=== PATIENT | female | born 1945 | race Caucasian/White ===

== ENCOUNTER → 2024-05-15 08:18 | Outpatient (REF) | payer OTHER, SELFPAY | LOC: HWRAD 08:18 | PROVIDERS: ATTENDING PHYSICIAN Family Medicine | DX: R59.0 Localized enlarged lymph nodes (principal) | CPT/HCPCS: 76536 ==

== ENCOUNTER → 2024-06-03 16:01 | Outpatient (REF) | payer OTHER, SELFPAY | LOC: WDC 16:01 | PROVIDERS: ATTENDING PHYSICIAN Advanced Practice Midwife; FAMILY PHYSICIAN Family Medicine | DX: Z12.31 Encounter for screening mammogram for malignant neoplasm of breast (principal) | CPT/HCPCS: 77063; 77067 ==

== ENCOUNTER → 2024-06-20 10:50 | Outpatient (REF) | payer OTHER, SELFPAY | LOC: RCS 10:50 | PROVIDERS: ATTENDING PHYSICIAN Internal Medicine Cardiovascular Disease; FAMILY PHYSICIAN Family Medicine | DX: I51.7 Cardiomegaly (principal); R09.89 Other specified symptoms and signs involving the circulatory and respiratory systems | CPT/HCPCS: 93306 ==

== ENCOUNTER → 2024-07-10 14:29 | Outpatient (REF) | payer OTHER, SELFPAY | LOC: HWRAD 14:29 | PROVIDERS: ATTENDING PHYSICIAN Advanced Practice Midwife; FAMILY PHYSICIAN Family Medicine | DX: Z78.0 Asymptomatic menopausal state (principal) | CPT/HCPCS: 77080 ==

== ENCOUNTER 2024-08-06 06:32 | Day surgery (SDC) | payer OTHER, SELFPAY | END 2024-08-06 10:25 | disposition home or self-care (01) | LOC: GI 06:32 | PROVIDERS: ATTENDING PHYSICIAN Surgery | DX: Z12.11 Encounter for screening for malignant neoplasm of colon (principal); Q43.8 Other specified congenital malformations of intestine; D12.3 Benign neoplasm of transverse colon; Z80.0 Family history of malignant neoplasm of digestive organs | CPT/HCPCS: 45385 ==

== ENCOUNTER → 2024-08-12 09:14 | Outpatient (REF) | payer OTHER, SELFPAY | LOC: RCS 09:14 | PROVIDERS: ATTENDING PHYSICIAN Internal Medicine Cardiovascular Disease; FAMILY PHYSICIAN Family Medicine | DX: I10 Essential (primary) hypertension (principal) | CPT/HCPCS: 93017 ==

== ENCOUNTER → 2024-12-25 13:01 | Outpatient (REF) | payer OTHER, SELFPAY | LOC: RCS 13:01 | PROVIDERS: ATTENDING PHYSICIAN Internal Medicine Cardiovascular Disease; FAMILY PHYSICIAN Family Medicine | DX: I10 Essential (primary) hypertension (principal) | CPT/HCPCS: 93306 ==

== ENCOUNTER 2025-01-16 09:26 | Emergency (ER) | payer SELFPAY ==
[2025-01-16 09:30] VITALS: BP 227/110
[2025-01-16 09:36] VITALS: BMI 24.9
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
[2025-01-16 09:39] VITALS: BP 203/90
[2025-01-16] MEDS: COZAAR 25 MG PO (09:57)
[2025-01-16 10:00] VITALS: BP 200/96
[2025-01-16 11:04] VITALS: BP 201/86
[2025-01-16 11:09] VITALS: BP 184/97
== END 2025-01-16 11:40 | disposition home or self-care (01) ==
LOC: EMR 09:26
PROVIDERS: EMERGENCY PHYSICIAN Emergency Medicine; FAMILY PHYSICIAN Family Medicine
DX: Z04.1 Encounter for examination and observation following transport accident (principal); I10 Essential (primary) hypertension; Z87.891 Personal history of nicotine dependence; Z96.643 Presence of artificial hip joint, bilateral; V44.5XXA Car driver injured in collision with heavy transport vehicle or bus in traffic accident, initial encounter; Y92.410 Unspecified street and highway as the place of occurrence of the external cause
CPT/HCPCS: 99284; 70450; 72125; 73030; 73502

== ENCOUNTER 2025-01-23 08:30 | Day surgery (SDC) | payer OTHER, SELFPAY ==
[2025-01-23] VITALS (13 sets, daily range): BP systolic 151–178; BP diastolic 80–97; BMI 23.2
[2025-01-23 09:13] LABS: Hematocrit 38.8 % (37.0-47.0); Hemoglobin 13.0 g/dL (12.0-16.0); Mean Corp Hgb Conc. 33.5 g/dL (33.0-37.0); Mean Corpuscular Volume 97.7 fL (81.0-99.0); Platelet Count 181 10^3/uL (130-400); Red Cell Dist. Width 12.7 % (11.5-14.5)
[2025-01-23] MEDS: NSS 184 ML IV (09:33)
[2025-01-23] MEDS: LOW STRENGTH ASPIRIN 81 MG PO (09:33)
[2025-01-23 09:48] LABS: ALT (SGPT) 15 U/L (0-35); AST (SGOT) 24 U/L (14-36); Albumin 4.2 g/dl (3.5-5.0); Alkaline Phosphatase 53 U/L (38-126); Blood Urea Nitrogen 20 mg/dl (7-17); Calcium 9.0 mg/dl (8.4-10.2); Carbon Dioxide 27 mmol/L (22-30); Chloride 105 mmol/L (98-107); Estimated Creatinine Clearance 68 ml/min; Glucose 80 mg/dl (70-99); Potassium 4.3 mmol/L (3.5-5.1); Sodium 134 mmol/L (135-145); Total Protein 6.8 g/dl (6.3-8.2); eGFR > 60.00
--- NOTE | 2025-01-23 10:32 | ITS.CL.CATH ---
Research Technologist - Catheterization
Cardiac Catheterization
Procedure Report:
LEFT HEART CATHETERIZATION
Date of Procedure: January 23, 2025
Referring: Dr. Sergio Whitfield
PROCEDURES:
1. Left heart catheterization with coronary and single-plane left ventriculography
INDICATION: Severe aortic stenosis
ACCESS: Right radial artery, 6 Portuguese sheath
HEMODYNAMICS : (mmHg)
AO (s/d) : 143/72
LV (s/d) : 194/13
LVEDP : 28
AORTIC VALVE:
Mean gradient: 48 mmHg
CORONARY FINDINGS
DOMINANCE: Right
LEFT MAIN: Normal
LEFT ANTERIOR DESCENDING: Normal
CIRCUMFLEX: Normal
RIGHT CORONARY ARTERY: Normal
VENTRICULOGRAPHY: Left ventriculography is performed in an FARNSWORTH projection. The digital single-plane left ventricular ejection fraction is visually estimated at 65%. No regional wall motion abnormalities
SEDATION: 36 minutes of procedural sedation was utilized. An independent bio medical technician was present to assist with and help manage the patient's level of consciousness and physiologic status.
RADIATION SUMMARY: Fluoro Time (min): 4.2, Dose (mGy): 176, DAP (Gy.cm2) : 12.1
Closure Device: TR band
CONCLUSIONS
1. Severe aortic stenosis with mean aortic valve gradient 48-50 mmHg
2. Normal coronary arteries
3. Preserved LV systolic function
RECOMMENDATIONS
1. Patient will be discussed at upcoming valve clinic meeting. A CT scan of the chest and CT surgical follow-up will be scheduled
Copy to: Dr. Sergio Whitfield
--- NOTE | 2025-01-23 14:07 | CONSULT.STRU ---
Consultation
-
Date/Time Consultation Requested: 01/23/2025 1000
Date/Time Consultation Performed: 01/23/2025 1030
Requesting Provider: Dr. Sergio Antonio
Performing Provider: TL Lorenzana
Reason for Consultation: Aortic stenosis/ TAVR evaluation
Patient History
Physicians
Family Physician: Susan Navarro
Outpatient Plastic Surgery Technician: Kamilah
Primary Plastic Surgery Technician: Kamilah
History of Present Illness
Mrs. Montemayor is a pleasant 79yo female with past medical notable for TIA (2017), HTN, Hypercholesterolemia, osteoarthritis, R-BBB, Left anterior fascicular block. She presents today for evaluation of her severe aortic stenosis. She denies chest pain,
palpitations, PND, orthopnea. She notes occasional swelling in her ankles. She denies fatigue, PALOMO or any syncopal events. Overall, she feels well. Her echocardiogram on 12/25/2024 is notable for AV PG/M.2/45, HUBER: 0.83, no AI noted, MIld MR and
TR. Cardiac cath 01/23/2025 with severe aortic stenosis with mean aortic valve gradient 48-50 mmHg. Normal coronary arteries. Preserved LV systolic function. Reviewed the pathophysiology of aortic stenosis and treatment options of SAVR and TAVR
with the patient. Explained the TAVR evaluation process and provided with an appointment for CT scan as well as CT consult with Dr. Bernstein. Allowed for and answered questions.
Past Medical History
Past Medical History: CVA/TIA (TIA 01/2018), HTN, Hypercholesterolemia and Other (osteopenia, osteoarthritis, LE neuropathy, h/o pneumonia, R-BBB, Left anterior fascicular block)
Past Surgical History
Past Surgical History: Other (Bunionectomy, cataract surgery, Right THR 2022, Left THR 2014, Rectoceal correction, hemorrhoidectomy)
Dental History
Regular dental care, does not know dentist name
Family History
Mother: at Age (85yo)
Father: at Age (89yo)
Social History
Drug: None
Tobacco: Former Smoker
Personal:
Living: With Spouse
Allergies
Allergy/AdvReac Type Severity Reaction Status Date / Time
atorvastatin Allergy Unknown Verified 01/23/25 08:48
latex Allergy Rash Verified 01/23/25 08:48
nickel (Nickel) Allergy Rash Verified 01/23/25 08:48
Home Medications
�Medication �Instructions �Recorded �Confirmed �Type
omega-3 fatty acids-fish oil 684 1 ea PO DAILY 10/12/12 01/23/25 History
mg-1,200 mg capsule,delayed
release (Bluford 3 Fish Oil)
aspirin 81 mg tablet,delayed 81 mg PO HS 06/27/22 01/23/25 History
release
calcium citrate 1,000 mg tablet 1,000 mg PO DAILY 06/27/22 01/23/25 History
cholecalciferol (vitamin D3) 25 25 mcg PO DAILY 06/27/22 01/23/25 History
mcg (1,000 unit) capsule (Vitamin
D3)
iwvlrshwosfh-lxgtqatv-vzrlnv 1 tab PO DAILY 06/27/22 01/23/25 History
tablet (Multivitamin 50 Plus
tablet)
gabapentin 300 mg tablet,extended 300 mg PO QPM PRN leg pain 01/16/25 01/23/25 History
release 24 hr
Muscle Relaxer 1 tab PO BIDPRN PRN muscle spasm 01/23/25 History
losartan 25 mg tablet 25 mg PO DAILY 01/23/25 01/23/25 History
Review of Systems
-
History Source: Patient and Family
General: Reports No Symptoms
HEENT: Reports No Symptoms
Respiratory: Reports No Symptoms; Denies SOB, PALOMO, Cough, Asthma or PND
Cardiac: Reports Edema (occasional, bilateral ankles); Denies Chest Pain or Palpitations
Abdomen/GI: Reports No Symptoms; Denies Abdominal Pain, Reflux, Indigestion, Nausea, Vomiting or Diarrhea
: Reports No Symptoms; Denies Dysuria, Urgency or Hematuria
Musculoskeletal: Reports No Symptoms
Skin: Reports No Symptoms
Neurological: Reports TIA (2018) and Numbness (neuropathy bilateral calves and feet)
Vascular: Reports No Symptoms
Physical Exam
Vital Signs
Temp 97.7 F 01/23/25 09:13
Temp route: Oral 01/23/25 09:16
Pulse 62 01/23/25 13:15
Blood pressure 162/81 01/23/25 13:15
Blood pressure extremity used: Left upper arm 01/23/25 10:40
Position: Sitting 01/23/25 10:40
MAP (cuff-Winnie Monitor) 108 01/23/25 13:15
SaO2 98 01/23/25 12:59
Oxygen Mode of Delivery Room air 01/23/25 10:40
Can the patient verbally communicate their pain? Yes 01/23/25 13:30
Actual Weight 61.235 kg 01/23/25 08:52
Body Mass Index (BMI) 23.2 01/23/25 08:52
Labs
01/23/25 09:08
01/23/25 09:25
Diagnostic Studies
01/23/2025 Cardiac Cath:
HEMODYNAMICS : (mmHg)
AO (s/d) : 143/72
LV (s/d) : 194/13
LVEDP : 28
AORTIC VALVE:
Mean gradient: 48 mmHg
CORONARY FINDINGS
DOMINANCE: Right
LEFT MAIN: Normal
LEFT ANTERIOR DESCENDING: Normal
CIRCUMFLEX: Normal
RIGHT CORONARY ARTERY: Normal
VENTRICULOGRAPHY: Left ventriculography is performed in an FARNSWORTH projection. The digital single-plane left ventricular ejection fraction is visually estimated at 65%. No regional wall motion abnormalities
CONCLUSIONS
1. Severe aortic stenosis with mean aortic valve gradient 48-50 mmHg
2. Normal coronary arteries
3. Preserved LV systolic function
12/25/2024 Echocardiogram:
SUMMARY
1. Left ventricular ejection fraction is hyperdynamic with an ejection fraction of 83 % by Nuñez's biplane method of discs.
2. Left ventricular cavity size is 3.50 cm which is small in size.
3. Moderate concentric left ventricular hypertrophy.
4. Severe aortic stenosis. Aortic valve area = 0.83 cm². Mild aortic regurgitation. The peak aortic valve gradient is 79.2 mmHg. The mean aortic valve gradient is 45.0 mmHg.
5. Compared to a prior transthoracic echocardiogram study from 06/20/2024 Aortic valve gradients have increased from prior peak/mean 62/41 mmHg to now 79/45 mmHg.

Transthoracic Echo procedure
A complete Transthoracic Echocardiogram was performed utilizing Two-Dimensional evaluation with color flow and spectral Doppler analysis.
PHYSICIAN INTERPRETATION
Left Ventricle:
No regional wall motion abnormalities. Left ventricular ejection fraction is hyperdynamic with an ejection fraction of 83 % by Nuñez's biplane method of discs. Left ventricular cavity size is 3.50 cm which is small in size. There is moderate
concentric left ventricular hypertrophy. There is global hyperdynamic left ventricular function. Normal LV diastolic function.
Right Ventricle:
Right ventricular size and systolic function are within normal limits.
Left Atrium:
Indexed left atrial volume is within normal range (15-34 ml/m2).
Right Atrium:
Right atrial size is normal.
Interatrial Septum:
The interatrial septum appears normal and intact, with no evidence of interatrial shunting.
Aortic Valve:
Aortic valve is trileaflet. There is severe leaflet thickening. Doppler findings and restricted movement of the aortic valve cusps are consistent with severe aortic stenosis. Aortic valve area = 0.83 cm². mild aortic regurgitation. The peak aortic
valve gradient is 79.2 mmHg. The mean aortic valve gradient is 45.0 mmHg. The aortic valve area, calculated by the continuity equation, is 0.83 cm².
Mitral Valve:
There is thickening of the anterior and posterior leaflets of the mitral valve. mild mitral annular calcification. mild mitral valve regurgitation.
Tricuspid Valve:
Mild tricuspid regurgitation. Estimated pulmonary artery pressure of 29 mmHg assuming a right atrial pressure of 3 mmHg.
Pulmonic Valve:
Pulmonic valve opens normally. No evidence of stenosis. No evidence of regurgitation.
Aorta:
The aorta, from all segments that were visualized, appears normal in dimension, with no evidence of dilatation or obstruction.
Pericardium:
There is no evidence of pericardial effusion.
Comparison To Previous Study:
Compared to a prior transthoracic echocardiogram study from 06/20/2024 Aortic valve gradients have increased from prior peak/mean 62/41 mmHg to now 79/45 mmHg.
Exam
General: Well Developed, Well Nourished, No Apparent Distress and Comfortable
HEENT: Normocephalic
Neck: Trachea Midline
Respiratory: Clear; Negative Wheezes, Crackles, Rhonchi or Accessory Muscle Use
Cardiac: S1/S2, Regular Rhythm and Murmur (Grab III/ CRUZ)
GI: Soft, Non Tender, Non Distended and Normal Bowel Sounds
Rectal: Deferred by Provider
Skin: Warm and Dry
Neuro: AO x 3 and Nonfocal/Grossly Intact
Extremities: Pulses (+2 pedal pulses bilaterally); Negative Lower Level Edema or Lower Level Cyanosis
Psych: Calm
Assessment / Plan
-
Procedure Type:�Isolated AVR
Perioperative Outcome Estimate %
Operative Mortality 1.9%
Morbidity & Mortality 6.66%
Stroke 1.24%
Renal Failure 0.669%
Reoperation 3.53%
Prolonged Ventilation 2.5%
Deep Sternal Wound Infection 0.027%
Long Hospital Stay (>14 days) 2.84%
Short Hospital Stay (<6 days)* 50.1%
Assessment:
Severe aortic stenosis
Plan:
-Continue TAVR evaluation as an outpatient
[facility]
-CT TAVR scan at [facility] on 02/05/2025
-CT surgery consult with Dr. Bernstein on 02/12/2025
-Dental clearance- patient will call with dentist name
-Continue aspirin 81mg daily
Data Reviewed
-
EKG: Report Reviewed by me
Manager Interventional: Report Reviewed by me and Discussed with Physician
Echo: Report Reviewed by me, Discussed with Patient and Discussed with Family
Labs: Labs Reviewed by me
Old Records: Reviewed (consult notes)
Total Time Spent with Patient (in minutes): 25
== END 2025-01-23 13:30 | disposition home or self-care (01) ==
LOC: CATH 08:30
PROVIDERS: ATTENDING PHYSICIAN Internal Medicine Interventional Cardiology; FAMILY PHYSICIAN Family Medicine; OTHER PHYSICIAN Internal Medicine Cardiovascular Disease
DX: I35.0 Nonrheumatic aortic (valve) stenosis (principal); E78.00 Pure hypercholesterolemia, unspecified; Z86.73 Personal history of transient ischemic attack (TIA), and cerebral infarction without residual deficits; I11.9 Hypertensive heart disease without heart failure; I45.2 Bifascicular block; M85.80 Other specified disorders of bone density and structure, unspecified site; Z79.82 Long term (current) use of aspirin; Z79.899 Other long term (current) drug therapy; Z87.01 Personal history of pneumonia (recurrent); Z87.891 Personal history of nicotine dependence; Z91.040 Latex allergy status; Z98.41 Cataract extraction status, right eye; Z98.42 Cataract extraction status, left eye
CPT/HCPCS: 99152; 99153; 80053; 85027; 93458; C1769; C1894; Q9967

== ENCOUNTER → 2025-01-31 09:22 | Outpatient (REF) | payer OTHER, SELFPAY | LOC: RAD 09:22 | PROVIDERS: ATTENDING PHYSICIAN Internal Medicine Cardiovascular Disease; FAMILY PHYSICIAN Family Medicine | DX: Z86.73 Personal history of transient ischemic attack (TIA), and cerebral infarction without residual deficits (principal); I45.2 Bifascicular block | CPT/HCPCS: 78803; A9538 ==

== ENCOUNTER → 2025-02-05 09:40 | Outpatient (REF) | payer OTHER, SELFPAY | LOC: RAD 09:40 | PROVIDERS: ATTENDING PHYSICIAN Nurse Practitioner Adult Health; FAMILY PHYSICIAN Family Medicine | DX: I35.0 Nonrheumatic aortic (valve) stenosis (principal) | CPT/HCPCS: 74174; 75572; Q9967 ==

== ENCOUNTER 2025-03-06 09:14 | Inpatient (IN) | payer OTHER, SELFPAY ==
[2025-02-25 12:15] VITALS: BMI 24.9
[2025-02-25 12:54] LABS: Hematocrit 38.1 % (37.0-47.0); Hemoglobin 12.9 g/dL (12.0-16.0); Mean Corp Hgb Conc. 33.9 g/dL (33.0-37.0); Mean Corpuscular Volume 96.9 fL (81.0-99.0); Nucleated Red Blood Cells % 0 %; Platelet Count 165 10^3/uL (130-400); Red Cell Dist. Width 12.7 % (11.5-14.5)
[2025-02-25 12:55] LABS: Urine Character Clear (Clear)
[2025-02-25 13:03] LABS: INR 1.00; PT 13.5 Sec (11.4-14.6)
[2025-02-25 13:07] LABS: Urine Squamous Cell 0-2 /LPF (Few); Urine White Cell 0-2 /HPF (0-5)
--- NOTE | 2025-02-25 13:40 | CM ---
Chart reviewed. Met with the patient in PAT. Reviewed preoperative and postoperative instructions and restrictions, along with showering guidelines. Gave patient 2 soaps. Patient is agreeable to a home visit by CT Transitional RN. Patient
is independent of ADLS, drives, lives with her daughter, granddaughter and SERGO in a 2 STH, 1 FRED, 0 DME. Plan is for the patient to return home with CT Transitional RN.
[2025-02-25 14:05] LABS: ALT (SGPT) 17 U/L (0-35); AST (SGOT) 26 U/L (14-36); Albumin 4.6 g/dl (3.5-5.0); Alkaline Phosphatase 55 U/L (38-126); Blood Urea Nitrogen 16 mg/dl (7-17); Calcium 9.5 mg/dl (8.4-10.2); Carbon Dioxide 30 mmol/L (22-30); Chloride 100 mmol/L (98-107); Estimated Creatinine Clearance 56 ml/min; Glucose 88 mg/dl (70-99); Potassium 4.0 mmol/L (3.5-5.1); Sodium 135 mmol/L (135-145); Total Protein 7.0 g/dl (6.3-8.2); eGFR > 60.00
[2025-02-26 08:35] LABS: Glycohemoglobin (HgbA1c) 5.2 % (4.0-5.9)
[2025-03-06 09:37] VITALS: BMI 24.5
--- NOTE | 2025-03-06 09:40 | W.CVOR.SURPR ---
CVOR Surgeon Immed Pre Op
-
I have examined this patient prior to performance of the scheduled procedure.
The patient's condition is unchanged from the time of the dictated/written History and
Physical and the patient is able to undergo the scheduled procedure.
[2025-03-06 09:57] VITALS: BP 164/78
[2025-03-06 09:58] VITALS: BP 172/83
--- NOTE | 2025-03-06 12:40 | CM ---
Chart reviewed. Patient is in the OR today. Patient is independent of ADLS, lives with her daughter, bennie and SERGO in a 2 STH, 1 FRED, 0 DME. Plan is for the patient to return home with CT Transitional RN.
--- NOTE | 2025-03-07 13:25 | W.PN.UPDATE ---
Update Note
Progress Note Update
Unfortunately Ms. Montemayor's case had to be canceled and we could not proceed with TAVR due to significant nickel allergy. After disussing with [employer] rep it was discussed with patient that the Resilia valve contains up to 30% nickel in the metal
frame. While there are documented cases of mild nickel sensitivities having the Resilia valve implanted without complications, Ms Montemayor describes a reaction that is significant and includes a widespread rash and hives. We do not feel that it would be
safe to move forward with TAVR at this point. The patient has decided that she would like allergy skin testing to verify but I have discussed with her that the only completely nickel free implant option would be SAVR Medtronic Avalus valve. The
patient understands and wants to rediscuss this at a later date so she will see me in office.
--- NOTE | 2025-03-11 11:54 | W.DCSUMMARY ---
Discharge Summary
Discharge Data
Date of Admission: 03/06/25
Date of Discharge: 03/06/25
Total time spent discharging patient (in min): 10
-
Pending Results: No
Hospital Course
Unfortunately Ms. Montemayor's case had to be canceled and we could not proceed with TAVR due to significant nickel allergy. After disussing with [employer] rep it was discussed with patient that the Resilia valve contains up to 30% nickel in the metal
frame. While there are documented cases of mild nickel sensitivities having the Resilia valve implanted without complications, Ms Montemayor describes a reaction that is significant and includes a widespread rash and hives. We do not feel that it would be
safe to move forward with TAVR at this point. The patient has decided that she would like allergy skin testing to verify but it was discussed with her that the only completely nickel free implant option would be SAVR Medtronic Avalus valve. The
patient understands and wants to rediscuss this at a later date so she will see Dr. Bernstein in office.
Discharge Plan
-
Patient Disposition: Home (Routine Discharge)
Discharge Diagnosis/Procedures: severe
Diet: Low Cholesterol and 2 Gram Sodium
Activity: As tolerated
Driving Restrictions: As prior to admission
Bathing Restrictions: OK to Shower
Specialty Instructions: Weigh Daily- Call MD for wt gain/loss 3 lbs overnight/5 lbs in 1 week
Referrals:
Jazmin Bradley PA-C [Specified Professional Personl, Cardiology] - 04/11/25 11:00 am
UNKNOWN - PT DOES,NOT KNOW [Unknown Provider]
Prescriptions:
Continued
calcium citrate 1,000 mg Tablet
1,000 mg PO DAILY
cholecalciferol (vitamin D3) [Vitamin D3] 25 mcg (1,000 unit) Capsule
25 mcg PO DAILY
aspirin 81 mg Tablet,Delayed Release (Dr/Ec)
81 mg PO HS
Multivitamin 50 Plus Tablet
1 tab PO DAILY
losartan 25 mg Tablet
25 mg PO DAILY
gabapentin 300 mg Tablet Extended Release 24 Hr
300 mg PO QPM PRN (Reason: leg pain)
Lewis 3 Fish Oil 1 EACH capsule,delayed release(DR/EC)
1 ea PO DAILY
Discharge Orders:
Discharge Patient (As Directed); Ordered 03/06/25
Ordered By: Delicia Bernstein
Discharge Date and Time
Discharge Date/Time: 03/06/25 10:54
Print Language: SLOVAK
== END 2025-03-06 10:54 | disposition home or self-care (01) | DRG 307 ==
LOC: CATH-IN 09:14
PROVIDERS: ADMITTING PHYSICIAN Student in an Organized Health Care Education/Training Program; FAMILY PHYSICIAN Family Medicine
DX: I35.0 Nonrheumatic aortic (valve) stenosis (principal); Z53.09 Procedure and treatment not carried out because of other contraindication; Z91.048 Other nonmedicinal substance allergy status
CPT/HCPCS: 36415; 71046; 80053; 81003; 81015; 82248; 83036; 83880; 85025; 85610; 86850; 86900; 86901; 87070; 93005